=== PATIENT | female | born 1975 | race Caucasian/White ===

== ENCOUNTER 2020-01-30 08:08 | Emergency (ER) | payer OTHER, SELFPAY ==
[2020-01-30 08:09] VITALS: BP 208/117; PULSE 84; RESP 18; TEMP 37.1; O2SAT 99; BMI 49.9
--- NOTE | 2020-01-30 08:14 | XR_ITS ---
WS: [id number] CHEST XRAY TECHNIQUE: Portable chest. CLINICAL INFORMATION: dyspnea/cough COMPARISON: None. FINDINGS: Heart: Normal cardiac silhouette. Lungs: Lungs are clear. No consolidation or pleural effusion. Bones: Normal visualized bony structures. XR/XR chest 1V portable [id number] IMPRESSION: Normal chest
--- NOTE | 2020-01-30 08:14 | ECG_ITS ---
[facility] Test Date: 2020-01-30 Pat Name: Katja Jay Department: Room: Gender: Female Rn Community [facility]: : 1975 Requested By: Trey Figueroa Order Number: [id number] Scarlett MD: Misty Tanner M.D. Measurements Intervals [place] Rate: 83 P: 45 TN: 151 QRS: 31 QRSD: 89 T: 19 QT: 371 QTc: 436 Interpretive Statements SINUS RHYTHM LOW QRS VOLTAGE IN PRECORDIAL LEADS [QRS DEFLECTION < 1.0 mV IN CHEST LEADS] No previous ECG available for comparison Electronically Signed On 01-30-2020 17:09:13 CDT by Misty Tanner M.D. [email or web address]/[id number] f
--- NOTE | 2020-01-30 08:15 | W.ED.DIZZY ---
HPI - Dizziness General: Chief Complaint: Dizziness Stated Complaint: nausea, dizziness Time Seen by Provider: 01/30/20 08:10 History of Present Illness: HPI Narrative: 44 yo female with complaints of dizziness. This began this morning she had gotten up was getting ready for the day she went to sit out of a chair show to get lightheaded dizzy felt like she was going to pass out does not sound like she really completely lost consciousness she did not fall out of the chair she managed to right herself this got a little bit better then it recurred again. She has vertiginous-like symptoms but they have decreased since she was at home and came here she does not reproduce them now while in the exam room. Her blood pressure is elevated. She denies any head trauma she is not on any anticoagulants. MD elicited complaint: dizziness, lightheadedness and near syncope Pertinent past history: inner ear problems Onset (ago): minute(s) Timing: sudden onset Severity: moderate Description: room spinning and lightheadedness Context: change in body position Associated symptoms: Denies chest pain, chills, malaise, nausea, nasal congestion or vomiting Review of Systems Const: Denies: fever(s), chills, body aches, change in appetite, fatigue or malaise ENMT: Denies: throat pain, ear or mastoid pain, nasal discharge or nasal congestion Card: Denies: chest pain, edema, dyspnea on exertion or orthopnea Resp: Denies: dyspnea, productive cough or non-productive cough GI: Denies: abdominal pain, nausea, vomiting, hematemesis, coffee ground emesis, diarrhea, constipation, bloating, hematochezia or melena : Denies: flank pain, difficulty voiding, dysuria, urinary frequency or urinary urgency Skin/Breast: Denies: rash or pruritus PFSH ED PFSH: Medical History (Updated 01/31/20 @ 11:16 by RYANN Shah) Diabetes mellitus type 2 in obese Hypothyroidism Obesity Tympanic membrane perforation Surgical History (Updated 01/30/20 @ 09:09 by Trey Sanchez DO) History of carpal tunnel surgery Hx of breast reduction, elective S/P endometrial ablation Social History (Updated 01/31/20 @ 08:59 by Gui Mendoza RN) Smoking and tobacco status: former smoker Alcohol intake: former Physical Exam Const: COMMON NORMALS: no acute distress GENERAL APPEARANCE: cooperative and comfortable ORIENTATION/CONSCIOUSNESS: Yes awake, Yes oriented to person, Yes oriented to place and Yes oriented to time HENMT: COMMON NORMALS: normocephalic, atraumatic and hearing grossly normal bilaterally HEAD & SCALP: normocephalic and atraumatic OTHER: Right TM is normal left TM is perforated without signs of infection Eye: COMMON NORMALS: Equal, round and reactive pupils present, EOMs intact bilaterally, conjunctivae normal and no scleral icterus CONJUNCTIVA: Yes conjunctivae normal PUPIL: Yes Equal, round and reactive pupils present Neck/C-Spine: COMMON NORMALS: full ROM, no lymphadenopathy, supple and no JVD Lymph: LYMPHATIC: no lymphadenopathy noted and no lymphedema noted Resp: COMMON NORMALS: normal respiratory effort, No retractions, No use of accessory muscles and clear to auscultation bilaterally AUSCULTATION: clear to auscultation bilaterally Cardio: COMMON NORMALS: no JVD, regular rate, regular rhythm and No murmurs present (Cardio) RATE: regular rate RHYTHM: regular rhythm GI: COMMON NORMALS: Soft to palpation and No hepatosplenomegaly present AUSCULTATION: Yes normoactive bowel sounds PALPATION: Yes Soft to palpation, No Tenderness to palpation present (GI), No Guarding due to palpation present (GI) and Yes No hepatosplenomegaly present Extremity: COMMON NORMALS: normal to inspection, capillary refill normal, no clubbing, cyanosis or edema, no calf tenderness and no pedal edema Neuro: SENSORIUM/ORIENTATION: Yes oriented to person, Yes oriented to place and Yes oriented to time Skin: COMMON NORMALS: no rashes or lesions noted GENERAL SKIN EXAM: no rashes or lesions noted Course Vital Signs: Vital signs: Vital Signs Temperature 98.7 F 01/30/20 08:09 Pulse Rate 70 01/30/20 09:51 Respiratory Rate 16 01/30/20 09:51 Blood Pressure 169/95 01/30/20 09:51 Pulse Oximetry 97 01/30/20 09:51 MDM - Dizziness MDM Narrative: Medical decision making narrative: Believe patient has some labyrinthitis her blood pressure is also accelerated a little bit. We did get it down and she is feeling somewhat better will restart her on amlodipine along with her lisinopril. She asked her to follow-up with her primary care doctor within the next 4 to 5 days sooner if she has further problems also gave her some lorazepam to use PRN for dizziness symptoms. Lab Data: Labs: Lab Results 01/30/20 01/30/20 01/30/20 Range/Units 08:30 08:30 08:43 WBC 7.5 (4.0-10.0) 10^3/ uL RBC 4.82 (4.1-5.3) 10^6/u L Hgb 15.0 (11.5-15.3) g/dL Hct 43.1 (37.0-47.0) % MCV 89.4 (81-99) fL MCH 31.1 (28.0-34.0) pg MCHC 34.8 (30.0-36.0) g/dL RDW 11.6 L (12.1-15.1) % Plt Count 275 (130-400) 10^3/c mm MPV 10.0 (7.4-10.4) fL Neut % (Auto) 71.1 % Lymph % (Auto) 18.1 % [place] % (Auto) 7.4 % Eos % (Auto) 2.4 % Baso % (Auto) 0.7 % Neut # (Auto) 5.32 (1.8-7.7) 10^3/u L Lymph # (Auto) 1.4 (0.8-4.8) 10^3/u L [place] # (Auto) 0.6 (0.2-0.9) 10^3/u L Eos # (Auto) 0.2 (0.0-0.8) 10^3/u L Baso # (Auto) 0.1 (0.0-0.1) 10^3/u L Nucleated RBC % (a uto) 0 % Nucleated RBCs # 0.0 /100WBC Sodium 137 (136-145) mmol/L Potassium 4.1 (3.5-5.1) mmol/L Chloride 103 (98-107) mmol/L Carbon Dioxide 22 (22-29) mmol/L Anion Gap 16.1 (5-19) BUN 11 (6-20) mg/dL Creatinine 0.4 L (0.5-0.9) mg/dL GFR Calculation 174.2 H (90-130) mL/min Glucose 186 H (65-115) mg/dL Calculated Osmolal ity 285 (285-295) mOsm/k g Calcium 9.2 (8.5-10.5) mg/dL Total Bilirubin 0.8 (0.15-1.2) mg/dL AST 39 H (0-32) U/L ALT 32 (0-33) U/L Alkaline Phosphata se 103 (35-105) IU/L Total Protein 7.3 (6.6-8.7) g/dL Albumin 4.0 (3.5-5.2) g/dL Globulin 3.3 (1.3-4.6) g/dL Urine Color Yellow (Yellow) Urine Appearance Clear (CLEAR) Urine pH 5 (5-7) Ur Specific Gravit y 1.015 (1.005-1.030) Urine Protein 1+ H (Negative) Urine Glucose (UA) 4+ H (Normal) Urine Ketones 1+ H (Negative) Urine Blood Neg (Negative) Urine Nitrate Negative (Negative) Urine Bilirubin Neg (NEGATIVE) Urine Urobilinogen Norm (Negative) mg/dL Ur Leukocyte Marine ase Negative (Negative) Urine RBC None (0-2) /hpf Urine WBC None (0-5) /hpf Ur Squamous Epith Cells 0-4 H (0-5) Amorphous Sediment Not Reportable Urine Bacteria 1+ H (NONE) Urine Yeast 1+ H Discharge Plan Discharge Patient Disposition: Home Clinical Impression: Acute labyrinthitis Hypertension Qualifiers: Hypertension type: essential hypertension Qualified Code(s): I10 - Essential (primary) hypertension Condition: Stable Prescriptions: New lorazepam [Ativan] 1 mg tablet 0.5 mg PO Q8H PRN (Reason: dizziness or vertigo) Qty: 20 RF: 0 amlodipine 5 mg tablet 5 mg PO DAILY Qty: 30 RF: 0 No Action metformin 500 mg tablet 1,000 mg PO BID RF: 0 levothyroxine [Synthroid] 175 mcg tablet 175 mcg PO DAILY RF: 0 norethindrone-e.estradiol-iron [[place] Fe 1.5/30 (28)] 1.5 mg-30 mcg (21)/75 mg (7) tablet 1 tab PO DAILY RF: 0 glipizide 10 mg tablet extended release 24hr 10 mg PO BID RF: 0 naproxen 500 mg tablet 500 mg PO BID PRN (Reason: unknown) RF: 0 Steglatro 15 mg tablet 15 mg PO DAILY RF: 0 lisinopril 10 mg tablet 10 mg PO DAILY Qty: 30 RF: 0 Discharge Orders: Discharge Order (Routine); Ordered 01/30/20 Ordered By: Trey Sanchez Referrals: Mojgan Adkins APN [Primary Care Provider] - Discharge Diet: Usual diet Discharge Activity: Increase activity as tolerated Activity Restrictions/Additional Instructions: Start amlodipine 5 mg daily. Use the Ativan as needed for dizziness. Follow-up with your primary care doctor to recheck on your blood pressure and your diabetes. Discharge Date/Time: 01/30/20 09:51 Coding Level of Care Code ED Nut Sheller for Chg Fwd Exam Comprehensive
[2020-01-30 08:37] LABS: Basophils # 0.1 10^3/uL (0.0-0.1); Basophils % 0.7 %; Eosinophils # 0.2 10^3/uL (0.0-0.8); Eosinophils % 2.4 %; Hematocrit 43.1 % (37.0-47.0); Lymphocytes # 1.4 10^3/uL (0.8-4.8); Lymphocytes % 18.1 %; Mean Corpuscular HGB Conc 34.8 g/dL (30.0-36.0); Mean Corpuscular Hemoglobin 31.1 pg (28.0-34.0); Mean Corpuscular Volume 89.4 fL (81-99); Monocytes # 0.6 10^3/uL (0.2-0.9); Monocytes % 7.4 %; Neutrophils # 5.32 10^3/uL (1.8-7.7); Neutrophils % 71.1 %; Nucleated Red Blood Cells % 0 %; Platelet Count 275 10^3/cmm (130-400); Red Blood Count 4.82 10^6/uL (4.1-5.3); Red Cell Distribution Width 11.6 % (12.1-15.1); White Blood Count 7.5 10^3/uL (4.0-10.0)
[2020-01-30 08:56] LABS: Alanine Aminotransferase 32 U/L (0-33); Alkaline Phosphatase 103 IU/L (35-105); Anion Gap 16.1 (5-19); Aspartate Amino Transferase 39 U/L (0-32); Blood Urea Nitrogen 11 mg/dL (6-20); Calcium 9.2 mg/dL (8.5-10.5); Carbon Dioxide 22 mmol/L (22-29); Chloride 103 mmol/L (98-107); Globulin 3.3 g/dL (1.3-4.6); Glomerular Filtration Rate 174.2 mL/min (90-130); Glucose 186 mg/dL (65-115); Osmolality Calculated 285 mOsm/kg (285-295); Potassium 4.1 mmol/L (3.5-5.1); Sodium 137 mmol/L (136-145); Total Bilirubin 0.8 mg/dL (0.15-1.2); Total Protein 7.3 g/dL (6.6-8.7)
[2020-01-30] MEDS: LORazepam 2 mg/mL INJ 1 mL 1 MG IVP (08:57)
[2020-01-30] MEDS: amlodipine 5 mg Tablet PO (08:58)
[2020-01-30] MEDS: hyDRALAzine 20 mg/mL INJ 1 mL 5 MG IVP (08:58)
[2020-01-30] MEDS: sodium chloride 0.9% 1,000 ML 999 ML IV (08:58)
[2020-01-30 08:59] VITALS: BP 148/117; BP 185/126; BP 195/127; PULSE 80; PULSE 83; PULSE 86
[2020-01-30 09:07] LABS: Glucose Urine UA 4+ (Normal); Protein Urine 1+ (Negative); Specific Gravity, Urine 1.015 (1.005-1.030); Urine Appearance Clear (CLEAR); Urine Color Yellow (Yellow); pH Urine 5 (5-7)
[2020-01-30 09:08] LABS: Add Urine Microscopic? YES; Bilirubin Urine Neg (NEGATIVE); Blood Urine Neg (Negative); Ketones Urine 1+ (Negative); Leukocyte Esterase Urine Negative (Negative); Nitrate Urine Negative (Negative); Urobilinogen Urine Norm (Negative)
[2020-01-30 09:17] LABS: Bacteria Urine 1+; Squamous Epithelial Cell Urine 0-4 (0-5)
[2020-01-30 09:18] LABS: Add Urine Culture? No
[2020-01-30 09:51] VITALS: BP 169/95; PULSE 70; RESP 16; O2SAT 97
== END 2020-01-30 09:51 | disposition home or self-care (01) ==
PROVIDERS: Emergency Provider Family Medicine; PCP Nurse Practitioner Family
DX: I10 Essential (primary) hypertension (principal); H83.09 Labyrinthitis, unspecified ear; E11.9 Type 2 diabetes mellitus without complications; Z87.891 Personal history of nicotine dependence; Z79.84 Long term (current) use of oral hypoglycemic drugs
CPT/HCPCS: 12345; 71045; 80053; 81001; 85025; 93005; 96361; 96374; 96375; 99284; J0360; J2060; J7030

== ENCOUNTER 2020-01-31 08:42 | Emergency (ER) | payer OTHER, SELFPAY ==
[2020-01-31 08:54] VITALS: BP 191/110; PULSE 83; RESP 16; TEMP 36.2; O2SAT 97; BMI 49.9
[2020-01-31 09:02] VITALS: O2SAT 99
--- NOTE | 2020-01-31 09:06 | CT_ITS ---
WS: [id number] CT HEAD TECHNIQUE: Noncontrast CT of the head obtained from the skullbase to the vertex. CLINICAL INFORMATION: LOUIE/HTN COMPARISON: None. DLP: 807.[address] scans at [facility] use at least one of these dose optimization techniques: automat ed exposure control; mA and/or kV adjustment per patient size (includes targeted exams where dose is matched to clinical indication); or iterative reconstruction. FINDINGS: No evidence of intracranial hemorrhage or mass effect. Ventricular system and basal cisterns are ivan nt. No extra-axial fluid collections. No evidence of mass or mass effect. Normal whiting-white different iation. Paranasal sinuses and mastoid air cells are well aerated. .Normal visualized soft tissues. CT/CT head wo con* [id number] IMPRESSION: 1. No evidence of intracranial hemorrhage or mass effect. 2. No acute intracranial findings. Attempted notification RYANN Shah at 01/31/2020 10:22 AM.
--- NOTE | 2020-01-31 09:07 | ECG_ITS ---
[facility] Test Date: 2020-01-31 Pat Name: Katja Jay Department: Room: Gender: Female Book Editor: : 1975 Requested By: Sharon Elder Order Number: [id number] Scarlett MD: Roslyn Signh M.D. Measurements Intervals [place] Rate: 77 P: 49 MT: 146 QRS: 47 QRSD: 79 T: 26 QT: 369 QTc: 419 Interpretive Statements SINUS RHYTHM Compared to ECG 01/30/2020 08:31:09 No significant changes Electronically Signed On 01-31-2020 20:04:51 CDT by Roslyn Singh M.D. [email or web address] [email or web address] [email or web address]/[id number] f
--- NOTE | 2020-01-31 09:08 | ED_ITS ---
HPI - General Adult General: Chief complaint: General Medical Stated complaint: louie, high bp Time Seen by Provider: 01/31/20 09:05 Source: patient Mode of arrival: ambulatory Limitations: no limitations History of Present Illness: HPI narrative: Patient is a 44-year-old female who presents to ED today for complaints of hypertension and a headache. Patient tells me she was seated earlier this morning and began feeling dizzy. She states she had an episode of pre-syncope but never actually passed out. She states she took her blood pressure and it was 160s/100s. Patient was seen here yesterday for complaints of dizziness. She was placed on 5 mg amlodipine. Patient tells me she is not having any chest pain, shortness of breath, palpitations. She had some blurry vision during her presyncopal episode but this is subsided. She is complaining currently of a headache. Blood pressure upon arrival was elevated at 190s/110s. Patient has no previous history of hypertension. PCP is Chiquita Adkins. Pain Consistency: intermittent Associated symptoms: Reports headache(s); Deny chest pain, confusion, dyspnea, malaise, nausea, rash, palpitations, syncope or vomiting Review of Systems Const: Denies: fever(s), chills, body aches, fatigue or malaise Eyes: Reports: blurry vision (subsided now); Denies: change in vision, photophobia, floaters or seeing flashes ENMT: Denies: odynophagia Card: Denies: chest pain, palpitations, irregular heart rhythm, edema, swelling of feet/ankles, lightheadedness, syncope, pre-syncope, dyspnea on exertion, orthopnea or leg pain with exertion Resp: Denies: dyspnea, productive cough, non-productive cough, hemoptysis or chest congestion GI: Denies: abdominal pain, nausea or vomiting Musc: Denies: neck pain Skin/Breast: Denies: rash Neuro: Reports: headache(s) and dizziness; Denies: numbness in extremities, weakness in extremities, sensory changes, lack of coordination, difficulty walking, frequent falls, vertigo, confusion, Slurred speech present or difficulty communicating thoughts PFS ED PFSH: Medical History (Updated 01/31/20 @ 11:16 by RYANN Shah) Diabetes mellitus type 2 in obese Hypothyroidism Obesity Tympanic membrane perforation Surgical History (Updated 01/30/20 @ 09:09 by Trey Sanchez DO) History of carpal tunnel surgery Hx of breast reduction, elective S/P endometrial ablation Social History (Updated 01/31/20 @ 08:59 by Gui Mendoza RN) Smoking and tobacco status: former smoker Alcohol intake: former Substance/Drug Use: never Physical Exam Const: COMMON NORMALS: no acute distress, patient oriented x3, no limitations and alert GENERAL APPEARANCE: cooperative NUTRITIONAL APPEARANCE: obese morbidly obese ORIENTATION/CONSCIOUSNESS: Yes awake, Yes oriented to person, Yes oriented to place and Yes oriented to time HENMT: COMMON NORMALS: normocephalic and atraumatic HEAD & SCALP: normocephalic and atraumatic Eye: COMMON NORMALS: Equal, round and reactive pupils present, EOMs intact bilaterally, conjunctivae normal and no scleral icterus GENERAL EYE: appearance normal, both eyes and all related structures CONJUNCTIVA: Yes conjunctivae normal PUPIL: Yes Equal, round and reactive pupils present Neck/C-Spine: COMMON NORMALS: full ROM, no lymphadenopathy and no meningeal signs Chest: COMMONS NORMALS: normal inspection of the chest and normal palpation of entire chest wall Resp: COMMON NORMALS: normal respiratory effort and clear to auscultation bilaterally AUSCULTATION: clear to auscultation bilaterally Cardio: COMMON NORMALS: regular rate and regular rhythm RATE: regular rate RHYTHM: regular rhythm Extremity: COMMON NORMALS: no pedal edema GENERAL: Yes normal exam except as noted Neuro: EMI COMA SCALE: document GCS findings [place] coma scale eye opening: Spontaneous Emi coma scale verbal response: Orientated Emi coma scale motor response: Obey commands Coram coma scale total score: 15 COMMON NORMALS: patient oriented x3 SENSORIUM/ORIENTATION: Yes alert, Yes oriented to person, Yes oriented to place and Yes oriented to time MENINGEAL SIGNS: Yes no meningeal signs Skin: COMMON NORMALS: no rashes or lesions noted GENERAL SKIN EXAM: no rashes or lesions noted Course Vital Signs: Vital signs: Vital Signs Temperature 97.2 F L 01/31/20 08:54 Pulse Rate 77 01/31/20 11:11 Respiratory Rate 16 01/31/20 11:11 Blood Pressure 149/83 01/31/20 11:11 Pulse Oximetry 99 01/31/20 11:11 MDM - General Adult MDM Narrative: Medical decision making narrative: pt given small amount of IV metoprolol with good results; BP now down to 149/83; work up here looks good; she is a fairly uncontrolled diabetic; she has mildly elevated LFTs-she has no GI complaints or abdominal pain at this time; head CT negative; I will place pt on lisinopril and recommend close follow up with her PCP so they can adjust her BP meds as needed based on her BP logs; return to ED precautions given Lab Data: Labs: Lab Results 01/31/20 01/31/20 01/31/20 Range/Units 09:21 09:30 09:30 WBC 8.6 (4.0-10.0) 10^3/ uL RBC 5.12 (4.1-5.3) 10^6/u L Hgb 15.8 H (11.5-15.3) g/dL Hct 45.8 (37.0-47.0) % MCV 89.5 (81-99) fL MCH 30.9 (28.0-34.0) pg MCHC 34.5 (30.0-36.0) g/dL RDW 11.5 L (12.1-15.1) % Plt Count 292 (130-400) 10^3/c mm MPV 9.9 (7.4-10.4) fL Neut % (Auto) 68.0 % Lymph % (Auto) 21.7 % [place] % (Auto) 6.6 % Eos % (Auto) 2.7 % Baso % (Auto) 0.7 % Neut # (Auto) 5.87 (1.8-7.7) 10^3/u L Lymph # (Auto) 1.9 (0.8-4.8) 10^3/u L [place] # (Auto) 0.6 (0.2-0.9) 10^3/u L Eos # (Auto) 0.2 (0.0-0.8) 10^3/u L Baso # (Auto) 0.1 (0.0-0.1) 10^3/u L Nucleated RBC % (a uto) 0 % Nucleated RBCs # 0.0 /100WBC Sodium 136 (136-145) mmol/L Potassium 4.1 (3.5-5.1) mmol/L Chloride 100 (98-107) mmol/L Carbon Dioxide 22 (22-29) mmol/L Anion Gap 18.1 (5-19) BUN 11 (6-20) mg/dL Creatinine 0.5 (0.5-0.9) mg/dL GFR Calculation 134.7 H (90-130) mL/min Glucose 182 H (65-115) mg/dL Calculated Osmolal ity 283 L (285-295) mOsm/k g Calcium 9.4 (8.5-10.5) mg/dL Total Bilirubin 0.8 (0.15-1.2) mg/dL AST 39 H (0-32) U/L ALT 38 H (0-33) U/L Alkaline Phosphata se 112 H (35-105) IU/L Troponin T Gen 5 n g/L (0-10) ng/L Total Protein 7.6 (6.6-8.7) g/dL Albumin 4.1 (3.5-5.2) g/dL Globulin 3.5 (1.3-4.6) g/dL TSH 1.46 (0.27-4.20) uIU/ mL Urine Color Yellow (Yellow) Urine Appearance Clear (CLEAR) Urine pH 5.0 (5-7) Ur Specific Gravit y 1.010 (1.005-1.030) Urine Protein Neg (Negative) Urine Glucose (UA) 4+ H (Normal) Urine Ketones 1+ H (Negative) Urine Blood Neg (Negative) Urine Nitrate Negative (Negative) Urine Bilirubin Neg (NEGATIVE) Urine Urobilinogen Norm (Negative) mg/dL Ur Leukocyte Marine ase Negative (Negative) 01/31/20 Range/Units 09:30 WBC (4.0-10.0) 10^3/ uL RBC (4.1-5.3) 10^6/u L Hgb (11.5-15.3) g/dL Hct (37.0-47.0) % MCV (81-99) fL MCH (28.0-34.0) pg MCHC (30.0-36.0) g/dL RDW (12.1-15.1) % Plt Count (130-400) 10^3/c mm MPV (7.4-10.4) fL Neut % (Auto) % Lymph % (Auto) % [place] % (Auto) % Eos % (Auto) % Baso % (Auto) % Neut # (Auto) (1.8-7.7) 10^3/u L Lymph # (Auto) (0.8-4.8) 10^3/u L [place] # (Auto) (0.2-0.9) 10^3/u L Eos # (Auto) (0.0-0.8) 10^3/u L Baso # (Auto) (0.0-0.1) 10^3/u L Nucleated RBC % (a uto) % Nucleated RBCs # /100WBC Sodium (136-145) mmol/L Potassium (3.5-5.1) mmol/L Chloride (98-107) mmol/L Carbon Dioxide (22-29) mmol/L Anion Gap (5-19) BUN (6-20) mg/dL Creatinine (0.5-0.9) mg/dL GFR Calculation (90-130) mL/min Glucose (65-115) mg/dL Calculated Osmolal ity (285-295) mOsm/k g Calcium (8.5-10.5) mg/dL Total Bilirubin (0.15-1.2) mg/dL AST (0-32) U/L ALT (0-33) U/L Alkaline Phosphata se (35-105) IU/L Troponin T Gen 5 n g/L 6 (0-10) ng/L Total Protein (6.6-8.7) g/dL Albumin (3.5-5.2) g/dL Globulin (1.3-4.6) g/dL TSH (0.27-4.20) uIU/ mL Urine Color (Yellow) Urine Appearance (CLEAR) Urine pH (5-7) Ur Specific Gravit y (1.005-1.030) Urine Protein (Negative) Urine Glucose (UA) (Normal) Urine Ketones (Negative) Urine Blood (Negative) Urine Nitrate (Negative) Urine Bilirubin (NEGATIVE) Urine Urobilinogen (Negative) mg/dL Ur Leukocyte Marine ase (Negative) Imaging Data^: CT Head: Radiologist's impression: [address] [address] [address] Scan Report Signed Patient: Katja Jay Unit #: [id number] : 1975 Age/Sex: 44 / F ADM Date: 01/31/20 Loc: ER Room/Bed: Attending Dr: Ordering Provider/Ordering MD: Sharon Elder Date of Service: 01/31/20 Procedure(s): CT head wo con* [id number] Accession Number(s): [id number] Report Number: [id number] WS: [id number] CT HEAD TECHNIQUE: Noncontrast CT of the head obtained from the skullbase to the vertex. CLINICAL INFORMATION: LOUIE/HTN COMPARISON: None. DLP: 807.[address] scans at [facility] use at least one of these dose optimi zation techniques: automated exposure control; mA and/or kV adjustment per patient size (includes targeted exams where dose is matched to clinical indication); or iterative reconstruction. FINDINGS: No evidence of intracranial hemorrhage or mass effect. Ventricular system and basal cisterns are patent. No extra-axial fluid collections. No evidence of mass or mass effect. Normal whiting-white differentiation. Paranasal sinuses and mastoid air cells are well aerated. .Normal visualized soft tissues. CT/CT head wo con* [id number] IMPRESSION: 1. No evidence of intracranial hemorrhage or mass effect. 2. No acute intracranial findings. Attempted notification RYANN Shah at 01/31/2020 10:22 AM. Dictated By: Gurvinder Li MD Signed By: Gurvinder Li MD Signed Date/Time: 01/31/20 1023 DD/ 1015 EKG Data^: EKG 1: EKG interpretation date: 01/31/20 EKG interpretation time: : Interpretation: Sinus rhythm Rate [address] elevation or depression changes noted Computer generated interpretation: Head CT 01/31/20 09:06 IMPRESSION: 1. No evidence of intracranial hemorrhage or mass effect. 2. No acute intracranial findings. Attempted notification RYANN Shah at 01/31/2020 10:22 AM. Discharge Plan Discharge Patient Disposition: Home Clinical Impression: Hypertension Qualifiers: Hypertension type: essential hypertension Qualified Code(s): I10 - Essential (primary) hypertension Condition: Stable Prescriptions: New lisinopril 10 mg tablet 10 mg PO DAILY Qty: 30 RF: 0 No Action metformin 500 mg tablet 1,000 mg PO BID RF: 0 levothyroxine [Synthroid] 175 mcg tablet 175 mcg PO DAILY RF: 0 norethindrone-e.estradiol-iron [[place] Fe 1.5/30 (28)] 1.5 mg-30 mcg (21)/75 mg (7) tablet 1 tab PO DAILY RF: 0 glipizide 10 mg tablet extended release 24hr 10 mg PO BID RF: 0 naproxen 500 mg tablet 500 mg PO BID PRN (Reason: unknown) RF: 0 Steglatro 15 mg tablet 15 mg PO DAILY RF: 0 lorazepam [Ativan] 1 mg tablet 0.5 mg PO Q8H PRN (Reason: dizziness or vertigo) Qty: 20 RF: 0 amlodipine 5 mg tablet 5 mg PO DAILY Qty: 30 RF: 0 Discharge Orders: Discharge Order (Routine); Ordered 01/31/20 Ordered By: Sharon Elder Referrals: Jed,ADELINA Ulrich [Primary Care Provider] - Patient Instructions: Hypertension (ED) Activity Restrictions/Additional Instructions: As discussed we will start you on lisinopril daily. Please keep a blood pressure log twice daily of your blood pressures and bring with you to your appointment with Chiquita Adkins. Please schedule an appointment with her as soon as possible for follow-up. You may return to the emergency department for worsening blood pressure, severe headache, chest pain, shortness of breath, difficulty breathing, visual changes, any other concerns you may have. Coding Level of Care Code ED [employer]ling [employer] Weigher And Packer for Rosales Fwdotty Exam Comprehensive
[2020-01-31 09:30] LABS: Add Urine Microscopic? NO
[2020-01-31 09:36] VITALS: BP 175/122; PULSE 80; RESP 15; O2SAT 100
[2020-01-31 09:36] LABS: Bilirubin Urine Neg (NEGATIVE); Blood Urine Neg (Negative); Glucose Urine UA 4+ (Normal); Ketones Urine 1+ (Negative); Leukocyte Esterase Urine Negative (Negative); Nitrate Urine Negative (Negative); Protein Urine Neg (Negative); Urine Appearance Clear (CLEAR); Urine Color Yellow (Yellow); Urobilinogen Urine Norm (Negative)
[2020-01-31] MEDS: metoprolol tartrate 1 mg/1 mL SDV 5 mL 2.5 MG IV (09:43)
[2020-01-31 09:46] LABS: Basophils # 0.1 10^3/uL (0.0-0.1); Basophils % 0.7 %; Eosinophils # 0.2 10^3/uL (0.0-0.8); Eosinophils % 2.7 %; Hematocrit 45.8 % (37.0-47.0); Hemoglobin 15.8 g/dL (11.5-15.3); Lymphocytes # 1.9 10^3/uL (0.8-4.8); Lymphocytes % 21.7 %; Mean Corpuscular HGB Conc 34.5 g/dL (30.0-36.0); Mean Corpuscular Hemoglobin 30.9 pg (28.0-34.0); Mean Corpuscular Volume 89.5 fL (81-99); Mean Platelet Volume 9.9 fL (7.4-10.4); Monocytes # 0.6 10^3/uL (0.2-0.9); Monocytes % 6.6 %; Neutrophils # 5.87 10^3/uL (1.8-7.7); Nucleated Red Blood Cells % 0 %; Platelet Count 292 10^3/cmm (130-400); Red Blood Count 5.12 10^6/uL (4.1-5.3); Red Cell Distribution Width 11.5 % (12.1-15.1); White Blood Count 8.6 10^3/uL (4.0-10.0)
--- NOTE | 2020-01-31 09:46 | PC.NURSE ---
pt to CT by stretcher with tech
[2020-01-31 10:02] LABS: Alanine Aminotransferase 38 U/L (0-33); Albumin Level 4.1 g/dL (3.5-5.2); Alkaline Phosphatase 112 IU/L (35-105); Anion Gap 18.1 (5-19); Aspartate Amino Transferase 39 U/L (0-32); Blood Urea Nitrogen 11 mg/dL (6-20); Calcium 9.4 mg/dL (8.5-10.5); Carbon Dioxide 22 mmol/L (22-29); Chloride 100 mmol/L (98-107); Globulin 3.5 g/dL (1.3-4.6); Glomerular Filtration Rate 134.7 mL/min (90-130); Glucose 182 mg/dL (65-115); Osmolality Calculated 283 mOsm/kg (285-295); Potassium 4.1 mmol/L (3.5-5.1); Sodium 136 mmol/L (136-145); Total Bilirubin 0.8 mg/dL (0.15-1.2); Total Protein 7.6 g/dL (6.6-8.7)
[2020-01-31 10:07] LABS: Troponin T (5th) Once 6 ng/L (0-10)
[2020-01-31 10:24] VITALS: BP 172/105; PULSE 73; RESP 20; O2SAT 100
[2020-01-31 10:47] LABS: Thyroid Stimulating Hormone 1.46 uIU/mL (0.27-4.20)
[2020-01-31 11:11] VITALS: BP 149/83; PULSE 77; RESP 16; O2SAT 99
[2020-01-31 11:30] VITALS: BP 149/84; PULSE 71; RESP 13; O2SAT 97
== END 2020-01-31 11:30 | disposition home or self-care (01) ==
PROVIDERS: Emergency Provider Physician Assistant; PCP Nurse Practitioner Family
DX: I10 Essential (primary) hypertension (principal); E11.9 Type 2 diabetes mellitus without complications; Z87.891 Personal history of nicotine dependence
CPT/HCPCS: 12345; 70450; 80053; 81003; 84443; 84484; 85025; 93005; 96365; 96374; 96375; 99283; J0131; J3490